=== PATIENT | female | born 1965 | race Caucasian/White ===

== ENCOUNTER → 2016-07-31 | Outpatient (CLI) | payer OTHER | LOC: ULTRA 07:58 | DX: R10.9 Unspecified abdominal pain (principal) ==

== ENCOUNTER → 2018-08-31 | Outpatient (CLI) | payer OTHER | LOC: RAD 10:05 | DX: M25.512 Pain in left shoulder (principal) ==

== ENCOUNTER → 2018-09-14 | Outpatient (CLI) | payer OTHER ==
[~2018-09-14] VITALS: Ht 172.7 cm; Wt 79.4 kg
[~2018-09-14] MED LIST: ALDACTONE50 MG PO; MEDROLDOSEPACK PO; TRAMADOL 50 MG50 MG PO; TRI FEMYNOR 281 EACH PO; WELLBUTRIN SR150 MG PO
[2018-09-14 08:28] VITALS: BP 119/74
--- NOTE | 2018-09-14 08:40 | NUR ---
Pain Clinic Assessment: 1. History of Osteoarthritis: DENIES History of Rheumatoid Arthritis: DENIES 2. Height: 5 ft. 8 in. 172.7 cm. Weight: 175.0 lb. oz. 79.380 kg. Patient's BMI: 26.6 3. Vital Signs: BP: 119/74 Pulse: 73 Resp: 16 Temp: 02 Sat: 100 ECG Mon: 4. Pain Intensity: 7 5. Fall Risk: Dizziness: N Needs help standing or walking: N Fallen in the last 3 months: N Fall risk comments: 6. Patient on Blood Thinner: None 7. History of Hypertension: N 8. Opioid Therapy greater than 6 weeks: N Opiate Contract Signed: 9. Risk Assessment Tool Provided: 10. Functional Assessment Tool: 11. Recreational Drug Use: Never Drug Type: Tobacco Use: Never Smoker Tobacco Type: Amount or Packs/day: How Many Years: Alcohol Use: Yes Frequency: Special Occasions Quant:
--- NOTE | 2018-09-15 07:47 | HPC ---
[facility] [address] [place] [address] PAIN MANAGEMENT CONSULTATION Name: MAI HOLBROOK [id number] Admission: 09/14/18 ������������������ Attend Phys: Brock Ni DO Discharge: ������������������ Date of : 67 Report #: [id number] THIS REPORT FOR: //name// CC: Norma Saha DATE OF SERVICE: 09/14/2018 CHIEF COMPLAINT: Left shoulder pain. HISTORY OF PRESENT ILLNESS: As you know, the patient is a very pleasant 53-year-old female who reports acute onset of left shoulder pain began about six months ago. The patient denies injury or trauma that may have led to symptom development. She indicates she started no new exercise programs or no new activities that may have led to symptoms. She is an accomplished swimmer and had an exacerbation of symptoms over the weekend when trying to go back to her swimming activities. She localizes pain directly over what appears to be the acromioclavicular joint on the left. She has undergone x-ray imaging of the shoulder, which shows no significant arthritic changes, though pain continues. She has trialed phfc-ifi-purjtel medications without significant improvement. She sought evaluation through her primary care physician who subsequently referred the patient to our clinic. The patient indicates pain is rhythmic and periodic. It tends to be mainly at direct activities. There is intermittent, brief momentary exacerbation of symptoms up to a level of 10/10. She indicates pain as shooting, aching, sharp, throbbing and tender, places current pain score 7/10, daily average is 7/10, worst pain has been is 10/10. The patient is able to localize pain directly over the AC joint on the left. Movement of the shoulder causes intensification of pain. She has been referred to our service to discuss treatment options for chronic left shoulder pain. PAST MEDICAL HISTORY: 1. Asthma. 2. Low estrogen levels. PAST SURGICAL HISTORY: The patient has undergone a cholecystectomy. She has undergone gastric sleeve and herniorrhaphy. SOCIAL HISTORY: The patient denies tobacco, alcohol, IV or illicit drug use. She is a code manager sales support. She is working, not receiving workmen's compensation nor is she trying to obtain disability benefits. She is not in litigation in regards to pain. She is unaccompanied today. REVIEW OF SYSTEMS: Positive for wearing corrective eyewear, left shoulder pain. All other review of systems negative per 12-point review of systems other than those listed in history of present illness. [address] [address] PAIN MANAGEMENT CONSULTATION Name: MAI HOLBROOK Room #: [facility]#: [id number] Admission: 09/14/18 ������������������ Attend Phys: Brock Ni DO Discharge: ������������������ Date of : 67 Report #: [id number] Pain impact score 31/70 indicating moderate interference of daily activities secondary to pain. ALLERGIES: No known drug allergies. CURRENT MEDICATIONS: Spironolactone 50 mg once a day, bupropion SR 150 mg once a day, Tri Femynor 28 tablet one a day, tramadol 50 mg every six hours p.r.n. for pain. IMAGING: X-ray of the left shoulder obtained 08/10/2012 shows unremarkable shoulder imaging. PHYSICAL EXAMINATION: VITAL SIGNS: Blood pressure 119/74, pulse 73, respiratory rate 16 and unlabored. The patient is 100% on room air. Height 5 feet 8 inches tall, weight 175 pounds, BMI calculated 26.6. GENERAL: Well-developed, well-nourished, well-hydrated 53-year-old female appearing stated age, placing current pain score around 7/10. HEENT: Normocephalic, atraumatic. Pupils equal, round, reactive to light. Extraocular muscles are intact. Sclerae nonicteric without injection. NEUROLOGIC: Cranial nerves 2-12 grossly intact. Speech is fluent. LUNGS: Clear. No wheeze, rhonchi or rales. CARDIOVASCULAR: Regular. No appreciable gallop, no rub. ABDOMEN: Soft, nontender, nondistended, normoactive bowel sounds. EXTREMITIES: Show no clubbing, no cyanosis, and no edema. MUSCULOSKELETAL: There is palpatory tenderness over the left acromioclavicular joint. Deep palpation of the area causes intensification of pain. There is no ecchymosis, no changes in skin color, texture overlying the area. Active and passive range of motion of the left shoulder is met with AC joint pain. There is no intrinsic shoulder pathology noted. No crepitus with movement. Pain limits range of motion, but otherwise normal motion is noted. ASSESSMENT: 1. Left acromioclavicular joint pain. 2. Left acromioclavicular joint strain. PLAN: 1. Based on today's physical exam and history the patient has provided, the description the patient uses in regards to pain as well as the location of symptoms, likely source of the patient's symptoms is left acromioclavicular joint. We discussed with the patient treatment options for a AC joint strain and pain subsequent to that strain. The following was discussed with the patient today. We discussed physical therapy, stretching exercises with strengthening and [address] [address] PAIN MANAGEMENT CONSULTATION Name: MAI HOLBROOK Room #: [facility]#: [id number] Admission: 09/14/18 ������������������ Attend Phys: Brock Ni DO Discharge: ������������������ Date of : 67 Report #: [id number] mobility techniques. We discussed topical medication management, oral medication management as possible treatment option. We discussed conservative treatment such as rest, relaxation and disuse of the area in the short term with some bracing to assist for pain control, not dissimilar to AC injuries noted in sporting events. We also discussed intra-articular AC joint injections and ultimately referrals to Orthopedics. After reviewing risks and benefits of all proposed treatment options, the patient chose to begin with conservative treatment options utilizing medication management. 2. The patient was provided a prescription of a Medrol Dosepak. She will take the pack as directed. This will act as her anti-inflammatory medication. She was advised not to take any nonsteroidal anti-inflammatories when utilizing the steroid pack. We may ultimately place the patient on a maintenance dose of nonsteroidal anti-inflammatories, but this will be determined whether or not she had gained long-term efficacy with the steroid pack started today. 3. We have recommended topical agents to the patient. She is going to consider these as an option. These options can be offered in a prescription form or vhtr-fbj-[id number] form either which will be effective. I recommend use of these medications up to three times a day. She can start these medications if she wishes at her earliest convenience. 4. We will see the patient back in followup visit in approximately 2 weeks. We wish to determine the efficacy of the Medrol Dosepak initially. If this is ineffective, then we will return her care to your capable hands. If this is ineffective or provides only transient improvement, we will discuss the other options including intraarticular AC joint injections. 5. We wish to thank nurse practitioner, Norma Garcia for the referral of the patient to our clinic. We will keep you apprised of her response to treatment as we address her left acromioclavicular joint pain. Again, we wish to thank you for the opportunity to see this patient in consultation. ��������������������������������������������� <ELECTRONICALLY SIGNED> ���������������������������������������� By: Brock Ni DO ��������������������������������������������� 09/15/18 [id number] Brock Ni DO /nt
== END ==
LOC: PAIN 06:38
DX: S46.812A Strain of other muscles, fascia and tendons at shoulder and upper arm level, left arm, initial encounter (principal); J45.909 Unspecified asthma, uncomplicated; Z90.49 Acquired absence of other specified parts of digestive tract; Z79.899 Other long term (current) drug therapy; X58.XXXA Exposure to other specified factors, initial encounter; Y93.89 Activity, other specified; Y92.89 Other specified places as the place of occurrence of the external cause; Y99.8 Other external cause status

== ENCOUNTER → 2020-06-14 | Outpatient (CLI) | payer OTHER | LOC: CAT 09:16 | PROVIDERS: ATTEND Nurse Practitioner | DX: Z13.6 Encounter for screening for cardiovascular disorders (principal); I25.10 Atherosclerotic heart disease of native coronary artery without angina pectoris; E78.00 Pure hypercholesterolemia, unspecified ==